=== PATIENT | male | born 1995 | race Caucasian/White ===

== ENCOUNTER 2017-08-26 00:37 | Emergency (ER) | payer OTHER ==
[2017-08-26 00:46] VITALS: TEMP 97.9; O2SAT 95
[2017-08-26] MEDS ORDERED: KETOROLAC 15 MG/1 ML SDV IVP ONE (00:56)
[2017-08-26 01:08] LABS: COLOR YELLOW; LEUKOCYTE ESTERASE,URINE NEGATIVE (NEGATIVE); NITRITE,URINE NEGATIVE (NEGATIVE); PH,URINE 5.5 (5.0-7.5)
[2017-08-26] MEDS ORDERED: NS 1,000 ML IV ONE (01:09)
--- NOTE | 2017-08-26 01:09 | EDPHY ---
H & P HPI/ROS: CC: Right sided flank and abdominal pain HPI: This 22-year-old male presents emergency department today with his for complaints of right-sided flank pain and diffuse abdominal pain since 11 o' clock this morning. He states he had the flank pain a few days ago and it lasted for about 10 minutes. He described it as sharp. He has had occasional difficulty urinating. He had pizza at 10am this morning. Then at 11am he was reaching for his phone and again had sharp pain in the right flank. He also developed diffuse abdominal discomfort which seemed worse in the epigastric region and suprapubic region. He describes the pain as 8/10. He did not take anything for the pain. He denies headache, dizziness, fever, cough, vomiting, constipation, diarrhea, melana or hematuria. His denies heavy alchol use and states his last intake was 3 -4 drinks on Saturday. He called the nurse call line regarding his symptoms and was advised to come to the emergency department. In March he had an umbilical herniorrhaphy and it was discovered that he had inflammation in the ascending colon as well as a fatty liver. He is waiting for a referral through the [facility] to a power line installer. REVIEW OF SYSTEMS: Constitutional: No fever, no chills. Eyes: No discharge. ENT: No sore throat. Respiratory: No cough, no shortness of breath. Cardiac: No chest pain, no palpitations. Gastrointestinal: See HPI. Genitourinary: No hematuria. Musculoskeletal: No swelling. Skin: No rashes. Neurological: No headache. Past Medical/Surgical History: PMH: fatty liver PSH: umbilical herniorrhaphy FH: HTN, "heart problems" NKDA Meds: none Social History: Quit tobacco products a few weeks ago. Prior to that he smoked about 16 cigarettes per week. Has occasional alcohol. He denies marijuana or other drug use. He is . His healthcare is through the [facility]. Smoking Status: Former smoker (Quit 3 weeks ago) Physical Exam: General Appearance: Alert, mild distress. Eyes: Pupils equal and round no pallor or injection. ENT, Mouth: Mucous membranes are moist. Respiratory: There are no retractions, lungs are clear to auscultation. Cardiovascular: Regular rate and rhythm. Gastrointestinal: Abdomen is round, soft; tender to palpation in the epigastric region and across the lower abdomen especially suprapubic. Neurological: Awake and alert, sensory and motor exams grossly normal. Skin: Warm and dry, no rashes. Multiple tattoos. Musculoskeletal: Neck is supple nontender. Back: bilateral CVA tenderness Extremities are symmetrical, full range of motion. Psychiatric: Patient is oriented X 3, there is no agitation. DIFFERENTIAL DIAGNOSIS: After history and physical exam differential diagnosis was considered for but not limited to: Gastritis, Pancreatitis, Biliary Colic, colitis, Appendicitis, UTI, Ureterolithiasis Constitutional: Initial Vital Signs Temperature (C) 97.9 F 08/26/17 00:44 Heart Rate 103 H 08/26/17 00:44 Respiratory Rate 18 08/26/17 00:44 Blood Pressure 130/90 H 08/26/17 00:44 O2 Sat (%) 95 08/26/17 00:44 O2 Delivery Mode Room Air Allergies/Adverse Reactions: No Known Allergies Allergy (Unverified 08/26/17 00:43) Home Medications: Medication Instructions Recorded NK [No Known Home Meds] 08/26/17 Medical Decision Making - Diagnostics Imaging: Discussed imaging studies w/ composite layup worker Radiologist (Essentially normal CT abdomen and pelvis without contrast. ) ED Course/Re-evaluation: The patient was seen and examined. Vital signs reviewed. Urinalysis was obtained and was negative. An IV was placed and a CBC and comprehensive metabolic panel was essentially negative with the exception of a very minimally elevated ALT. Lipase was negative. He was given Toradol 15 mg IV push for pain. A CT of the abdomen pelvis without contrast was essentially negative without evidence of kidney stone, appendicitis, or colitis. No abnormalities of the gallbladder but again a fatty liver was noted. The patient was still having abdominal discomfort and was given a GI cocktail as well as Pepcid 20 mg IV push. His symptoms were improving at this time and he was discharged home to follow up with his regular provider at the [facility]. He should return to the emergency room sooner if any further problems or concerns as discussed. - Data Points Laboratory Results: Laboratory Results 08/26/17 01:03 08/26/17 01:03 08/26/17 08/26/17 08/26/17 01:03 01:03 01:03 WBC 7.04 10^3/uL 10^3/uL (3.80-9.50) RBC 5.11 10^6/uL 10^6/uL (4.40-6.38) Hgb 15.5 g/dL g/dL (13.7-17.5) Hct 44.1 % % (40.0-51.0) MCV 86.3 fL fL (81.5-99.8) MCH 30.3 pg pg (27.9-34.1) MCHC 35.1 g/dL g/dL (32.4-36.7) RDW 13.1 % % (11.5-15.2) Plt Count 300 10^3/uL 10^3/uL (150-400) MPV 11.1 fL fL (8.7-11.7) Neut % (Auto) 46.7 % % (39.3-74.2) Lymph % (Auto) 40.1 % % (15.0-45.0) Heard % (Auto) 8.9 % % (4.5-13.0) Eos % (Auto) 3.3 % % (0.6-7.6) Baso % (Auto) 0.9 % % (0.3-1.7) Nucleat RBC Rel Count 0.0 % % (0.0-0.2) Absolute Neuts (auto) 3.29 10^3/uL 10^3/uL (1.70-6.50) Absolute Lymphs (auto) 2.82 10^3/uL 10^3/uL (1.00-3.00) Absolute Monos (auto) 0.63 10^3/uL 10^3/uL (0.30-0.80) Absolute Eos (auto) 0.23 10^3/uL 10^3/uL (0.03-0.40) Absolute Basos (auto) 0.06 10^3/uL 10^3/uL (0.02-0.10) Absolute Nucleated RBC 0.00 10^3/uL 10^3/uL (0-0.01) Immature Gran % 0.1 % % (0.0-1.1) Immature Gran # 0.01 10^3/uL 10^3/uL (0.00-0.10) Sodium 141 mEq/L mEq/L (134-144) Potassium 4.4 mEq/L mEq/L (3.5-5.2) Chloride 107 mEq/L mEq/L (97-110) Carbon Dioxide 19 mEq/l L mEq/l (22-31) Anion Gap 15 mEq/L mEq/L (8-16) BUN 14 mg/dL mg/dL (7-23) Creatinine 0.7 mg/dL mg/dL (0.7-1.3) Estimated GFR > 60 Glucose 93 mg/dL mg/dL (70-100) Calcium 9.7 mg/dL mg/dL (8.5-10.4) Total Bilirubin 0.9 mg/dL mg/dL (0.1-1.4) Conjugated Bilirubin 0.5 mg/dL mg/dL (0.0-0.5) Unconjugated Bilirubin 0.4 mg/dL mg/dL (0.0-1.1) AST 31 IU/L IU/L (17-59) ALT 76 IU/L H IU/L (21-72) Alkaline Phosphatase 87 IU/L IU/L (38-126) Total Protein 7.1 g/dL g/dL (6.3-8.2) Albumin 4.5 g/dL g/dL (3.5-5.0) Lipase 89 IU/L IU/L (23-300) Urine Color YELLOW Urine Appearance CLEAR Urine pH 5.5 (5.0-7.5) Ur Specific [place] 1.025 (1.002-1.030) Urine Protein NEGATIVE (NEGATIVE) Urine Ketones NEGATIVE (NEGATIVE) Urine Blood NEGATIVE (NEGATIVE) Urine Nitrate NEGATIVE (NEGATIVE) Urine Bilirubin NEGATIVE (NEGATIVE) Urine Urobilinogen 0.2 EU EU (0.2-1.0) Ur Leukocyte Esterase NEGATIVE (NEGATIVE) Urine Glucose NEGATIVE (NEGATIVE) Medications Given: Discontinued Medications Al Hydroxide/Mg Hydroxide (Maalox Susp) 30 ml PO EDNOW ONE Stop: 08/26/17 02:03 Last Admin: 08/26/17 02:09 Dose: 30 ml Famotidine (Pepcid) 20 mg IVP EDNOW ONE Stop: 08/26/17 02:05 Last Admin: 08/26/17 02:09 Dose: 20 mg Sodium Chloride (Ns) 1,000 mls @ 0 mls/hr IV ONCE ONE; Wide Open PRN Reason: Protocol Stop: 08/26/17 01:10 Last Admin: 08/26/17 01:13 Dose: 1,000 mls Ketorolac Tromethamine (Toradol) 15 mg IVP EDNOW ONE Stop: 08/26/17 00:57 Last Admin: 08/26/17 01:14 Dose: 15 mg Lidocaine (Lidocaine 2% Viscous) 5 ml PO EDNOW ONE Stop: 08/26/17 02:05 Last Admin: 08/26/17 02:09 Dose: 5 ml Departure - Departure Disposition: Home, Routine, Self-Care Clinical Impression: Acute generalized abdominal pain, Acute abdominal pain in right flank Condition: Good Instructions: Acute Abdominal Pain (ED) Additional Instructions: Follow a low-fat diet for the time being. Consider [id number] H1 jessy such as Pepcid or Zantac, or a proton pump inhibitor such as Prilosec. Follow up with your regular provider this week, or return to the emergency room sooner if symptoms worsen or any further problems or concerns. Stand Alone Forms: Work Excuse
[2017-08-26 01:26] LABS: % IMMATURE GRANULYOCYTES 0.1 % (0.0-1.1); ABSOLUTE IMMATURE GRANULOCYTES 0.01 10^3/uL (0.00-0.10); ADD DIFF? NO; ADD MORPH? NO; ADD SCAN? NO; ATYPICAL LYMPHOCYTE FLAG 10 (0-99); FRAGMENT RBC FLAG 0 (0-99); HEMATOCRIT 44.1 % (40.0-51.0); HEMOGLOBIN 15.5 g/dL (13.7-17.5); LEFT SHIFT FLG 0 (0-99); LIPEMIA HEMOLYSIS FLAG 90 (0-99); MEAN CELL HEMOGLOBIN 30.3 pg (27.9-34.1); MEAN CELL HEMOGLOBIN CONCENTR. 35.1 g/dL (32.4-36.7); MEAN CELL VOLUME 86.3 fL (81.5-99.8); MEAN PLATELET VOLUME 11.1 fL (8.7-11.7); PLATELET CLUMPS FLAG 0 (0-99); PLATELET COUNT 300 10^3/uL (150-400); RED BLOOD CELL COUNT 5.11 10^6/uL (4.40-6.38); RED CELL DISTRIBUTION WIDTH 13.1 % (11.5-15.2)
[2017-08-26 01:33] LABS: ALANINE AMINOTRANSFERASE 76 IU/L (21-72); ALBUMIN 4.5 g/dL (3.5-5.0); ALKALINE PHOSPHATASE 87 IU/L (38-126); ANION GAP 15 mEq/L (8-16); ASPARTATE AMINOTRANSFERASE 31 IU/L (17-59); BILIRUBIN,TOTAL 0.9 mg/dL (0.1-1.4); BILIRUBIN-CONJUGATED 0.5 mg/dL (0.0-0.5); BILIRUBIN-UNCONJUGATED 0.4 mg/dL (0.0-1.1); CALCIUM 9.7 mg/dL (8.5-10.4); CARBON DIOXIDE 19 mEq/l (22-31); CHLORIDE 107 mEq/L (97-110); CREATININE 0.7 mg/dL (0.7-1.3); GLOMERULAR FILTRATION RATE > 60; GLUCOSE 93 mg/dL (70-100); POTASSIUM 4.4 mEq/L (3.5-5.2); SODIUM 141 mEq/L (134-144); TOTAL PROTEIN 7.1 g/dL (6.3-8.2)
[2017-08-26] MEDS ORDERED: MAG HYDROX/AL HYDROX/SIMETH 30 ML UDCUP PO ONE (02:02)
[2017-08-26] MEDS ORDERED: FAMOTIDINE 20 MG/2 ML SDV IVP ONE (02:04)
[2017-08-26] MEDS ORDERED: LIDOCAINE 2% VISCOUS 15 ML UDCUP PO ONE (02:04)
[2017-08-26 02:15] VITALS: BP 113/68; PULSE 72; RESP 16
== END 2017-08-26 02:36 | disposition home or self-care (01) ==
LOC: CED 00:37
DX: R10.84 Generalized abdominal pain (principal); E86.9 Volume depletion, unspecified; Z87.891 Personal history of nicotine dependence
CPT/HCPCS: 74176-PO; 80048-PO; 80076-PO; 81003-PO; 83690-PO; 85025-PO; 96374; J1885